=== PATIENT | male | born 1995 | race Caucasian/White ===

== ENCOUNTER 2020-01-07 12:26 | Emergency (ER) | payer BC, SELFPAY ==
[2020-01-07 12:46] VITALS: BMI 21.2
[2020-01-07 12:48] VITALS: BP 161/85; PULSE 74; RESP 16; TEMP 37.4; O2SAT 100
--- NOTE | 2020-01-07 13:59 | ED_ITS ---
HPI - General Adult General: Chief complaint: General Medical Stated complaint: needs rabie shots Time Seen by Provider: 01/07/20 13:41 Source: patient Mode of arrival: ambulatory Limitations: no limitations History of Present Illness: HPI narrative: Patient is a 24-year-old male who presents to ED today for evaluation and possible need for rabies PEP. Patient tells me yesterday evening he was outside when a bat swept down and swarmed around his face. Patient states he did not think much of the encounter however today contacted the [facility] who recommended coming to the emergency department for rabies PEP. Patient denies any known bites/scratches from the bat. Onset (ago): hour(s) Pain Consistency: other (none) Review of Systems Const: Denies: fever(s), chills or body aches Skin/Breast: Reports: other (no scratches/bite [place]) [facility] ED PFSH: Medical History (Updated 01/07/20 @ 14:34 by ADRIENNE Ontiveros) Acute serous otitis media Social History Smoking and tobacco status: never smoked Lives independently: Yes Household members: spouse Marital status: Physical Exam Const: COMMON NORMALS: average body habitus, patient oriented x3, no limitations, healthy appearing, alert and well nourished GENERAL APPEARANCE: cooperative and anxious HENMT: COMMON NORMALS: normocephalic and atraumatic HEAD & SCALP: normocephalic and atraumatic Neck/C-Spine: GENERAL: Yes normal visual inspection Neuro: COMMON NORMALS: patient oriented x3 SENSORIUM/ORIENTATION: Yes alert Skin: NARRATIVE SKIN EXAM: normal skin exam Course Vital Signs: Vital signs: Vital Signs Temperature 99.4 F 01/07/20 12:48 Pulse Rate 74 01/07/20 12:48 Respiratory Rate 16 01/07/20 12:48 Blood Pressure 161/85 01/07/20 12:48 Pulse Oximetry 100 01/07/20 12:48 MDM - General Adult MDM Narrative: Medical decision making narrative: The health department has recommended rabies PEP. I have spoken to patient in regards to guidelines stating post-exposure prophylaxis is not necessary if the person was aware of the bat at all times while in an enclosed or open space and is certain that there was no bite, scratch, or mucous membrane exposure . Ultimately I told patient the decision to begin rabies PEP was up to him-patient request these today. Discharge Plan Discharge Patient Disposition: Home, Self-Care Clinical Impression: Exposure to bat without known bite, Need for post exposure prophylaxis for rabies Condition: Stable Prescriptions: No Action No Known Home Medications RF: 0 Discharge Orders: Discharge Order (Routine); Ordered 01/07/20 Ordered By: Poly Bynum Referrals: Adali Beavers FNP-C [Primary Care Provider] - Patient Instructions: Rabies Vaccine (Injection), Rabies Immune Globulin (Injection) Activity Restrictions/Additional Instructions: As discussed you have been given a schedule of the remainder of your vaccination series. Coding Level of Care Code ED Statistical Consultant for Padmaja Fwd Exam Expanded Problem Focused
[2020-01-07] MEDS: rabies vaccine 2.5 unit SDV IM (14:30)
[2020-01-07 14:46] VITALS: BP 161/85; PULSE 74; RESP 16; TEMP 37.4; O2SAT 100
--- NOTE | 2020-01-14 10:35 | DCPLANNER ---
manager of security faxed patients records to the [facility] due to patient starting the rabies vaccinations. manager of security will call [facility] to confirm that patient completed the rabies vaccination series.
--- NOTE | 2020-02-10 08:05 | DCPLANNER ---
Patient did complete the series for the rabies vaccinations.
== END 2020-01-07 14:47 | disposition home or self-care (01) ==
PROVIDERS: Emergency Provider Physician Assistant; PCP Nurse Practitioner Family
DX: Z20.3 Contact with and (suspected) exposure to rabies (principal); Z29.14 Encounter for prophylactic rabies immune globulin
CPT/HCPCS: 12345; 90375; 90471; 90675; 96372; 99281; 99283

== ENCOUNTER → 2020-03-07 16:40 | Outpatient (BNVA) | payer BC, SELFPAY | PROVIDERS: PCP Nurse Practitioner Family; Visit Provider Nurse Practitioner | DX: R10.9 Unspecified abdominal pain (principal) | CPT/HCPCS: 81000 ==

== ENCOUNTER → 2023-09-01 11:35 | Outpatient (BNVA) | payer OTHER, SELFPAY | PROVIDERS: PCP Nurse Practitioner Family; Visit Provider Nurse Practitioner Family | DX: J02.9 Acute pharyngitis, unspecified (principal) | CPT/HCPCS: 87071; 87880 ==

== ENCOUNTER 2024-06-01 12:47 | Emergency (ER) | payer OTHER, SELFPAY ==
[2024-06-01 13:11] VITALS: BP 176/81; PULSE 53; RESP 16; TEMP 36.8; O2SAT 98
--- NOTE | 2024-06-01 14:30 | ED_ITS ---
HPI - Wound/Laceration General: Chief Complaint: Wound/Laceration Stated Complaint: sliced finger open Time Seen by Provider: 06/01/24 14:14 History of Present Illness: Patient is a 28-year-old [id number] male that presents to the emergency department with a laceration to the left thumb. Patient reports that he was lifting a refrigerator when the bottom of it cut into his thumb. Bleeding is controlled here in the emergency department with bandage and Coban. Patient has sensation in the tip of the finger. Good cap refill Last tetanus 4 years ago Denies any chronic medical conditions Related Data Previous Rx's Medication Instructions Recorded promethazine-DM 6.25 mg-15 mg/5 mL 5 ml PO Q6H PRN cough #120 mL 06/21/23 oral syrup azithromycin 250 mg tablet See Rx Instructions PO .COMPLEX #6 09/01/23 tabs doxycycline hyclate 100 mg capsule 100 mg PO BID #20 caps 02/02/24 Allergies Allergy/AdvReac Type Severity Reaction Status Date / Time No Known Allergies Allergy Verified 06/01/24 13:19 Review of Systems General: Reports: 10 or more systems reviewed and unremarkable except in HPI and below PFSH ED PFSH: Medical History Acute serous otitis media Surgical History History of deviated nasal septum 2013 after fracture History of brain surgery Subdural hematology 2005 Family History Grandfather Heart disease Grandmother Heart disease Denies family history of Diabetes mellitus, type 2 Cancer Social History Smoking and tobacco/nicotine status: never used tobacco/nicotine Lives independently: Yes Household members: spouse Marital status: Physical Exam Narrative: EXAM NARRATIVE: No acute distress Alert and oriented x 3 Afebrile vital signs stable Moving all extremities Nonlabored breathing Well-perfused Left upper extremity: Patient is able to flex and extend the elbow and wrist Patient is able to give a thumbs up, make an okay sign, cross fingers abduct fingers and make a fist Sensation intact light touch at radial, median, ulnar nerve distribution Sensation intact to the tip of the left thumb. He has a lunate shaped laceration to the palmar aspect of the left thumb distal to the PIP joint He underwent XR imaging of the fingers which revealed no fracture or retained foreign bodies Laceration does not extend through the fatty portion of the thumb pad. Procedures Laceration Laceration 1: Site: hand Side (If applicable): left Size (cm): 1.5 Description: flap Depth: simple, single layer Local Anesthetic: lidocaine 1% Amount of anesthesia used (mL): 2 Pre-repair: wound explored, irrigated extensively and deep structures intact Skin layer closed with: nylon Size (cm): 5-0 Number of sutures: 2 Technique: simple, interrupted and horizontal mattress Course Vital Signs: Vital signs: Vital Signs Temperature 98.2 F 06/01/24 13:11 Pulse Rate 53 L 06/01/24 13:11 Respiratory Rate 16 06/01/24 13:11 Blood Pressure 176/81 06/01/24 13:11 Pulse Oximetry 98 06/01/24 13:11 Oxygen Delivery Me thod Room Air 06/01/24 13:11 MDM - Wound/Laceration Medical Decision Making This is a [id number]-[id number] 28-year-old male that sustained a laceration to the left palmar aspect of the thumb distal to the PIP The wound was cleansed and then infiltrated with approximately 2 cc of lidocaine. After anesthesia was achieved, I was able to cleanse and thoroughly evaluate the depth of the wound. This wound appears to be avulsion but superficial. See laceration repair record Patient tolerated well Sutures to be removed in 12 days XR interpretation done by ED provider, pending radiology final review Discharge Plan Discharge Patient Disposition: Home Clinical Impression: Laceration Condition: Stable Prescriptions: No Action azithromycin 250 mg tablet See Rx Instructions PO .COMPLEX Qty: 6 0RF Rx Instructions: For 250 mg dose pack: take 500 mg today (day 1), then 250 mg for 4 days (days 2-5) PO doxycycline hyclate 100 mg capsule 100 mg PO BID Qty: 20 0RF promethazine-DM 6.25-15 mg/5 mL syrup 5 ml PO Q6H PRN (Reason: cough) Qty: 120 0RF Discharge Orders: Discharge ED (Routine); Ordered 06/01/24 Ordered By: Britni Marquez Referrals: Adali Beavers FNP-C [Primary Care Provider] - Discharge Diet: Advance as tolerated Discharge Activity: Resume usual activity Patient Instructions: Pain Management, Laceration (ED) Activity Restrictions/Additional Instructions: Keep the injury clean dry and covered when working with dirty substances. Sutures out in 12 days. Please return to the emergency department for new, concerning, worsening symptoms including signs of infection such as swelling warmth or drainage. Anticipate mild redness over the next 24 hours as your body starts to heal this area Coding Level of Care Code ED Brand Planner for Padmaja Simons
--- NOTE | 2024-06-01 14:31 | XRR_ITS ---
PROCEDURE INFORMATION: Exam: XR Left Finger(s) Exam date and time: 06/01/2024 2:34 PM Age: 28 years old Clinical indication: Injury or trauma; Other: Laceration to left thumb; Finger; Additional info: Left thumb laceration TECHNIQUE: Imaging protocol: Radiologic exam of the left fingers. Views: Minimum 2 views. COMPARISON: No relevant prior studies available. FINDINGS: Bones/joints: No acute fracture. No dislocation. Soft tissues: Mild soft tissue swelling involving the base of the 1st metacarpal. XR/XR finger LT min 2V [id number] IMPRESSION: Mild soft tissue swelling at the base of the 1st metacarpal without evidence of acute fracture or dislocation.
[2024-06-01] MEDS: lidocaine 1% 10 ML INJ INJECTION (15:04)
[2024-06-01 15:20] VITALS: BP 152/81; PULSE 52; O2SAT 98
== END 2024-06-01 15:21 | disposition home or self-care (01) ==
PROVIDERS: Emergency Provider Nurse Practitioner; PCP Nurse Practitioner Family
DX: S61.012A Laceration without foreign body of left thumb without damage to nail, initial encounter (principal); X58.XXXA Exposure to other specified factors, initial encounter
CPT/HCPCS: 12001; 73140; 99283